=== PATIENT | male | born 1960 | race Caucasian/White ===

== ENCOUNTER 2017-01-03 05:50 | Day surgery (SDC) | payer OTHER ==
[~2017-01-03] VITALS: Ht 175.3 cm; Wt 78.3 kg
--- NOTE | ~2017-01-03 | OR ---
PATIENT'S NAME: JENNIFFERLESTER Tillman [facility] AGE: 56 Y [address] ROOM: [place] [address] LOCATION: [facility] ADMIT DATE: 01/03/2017 OR/Procedure Report DISCHARGE DATE: FAMILY PHYSICIAN: Gianluca Pino PA-C ATTENDING PHYSICIAN: Wil Reed SURGEON: Wil Reed MD DROP WIRE STRINGER: DATE OF PROCEDURE: 01/03/2017 PREOPERATIVE DIAGNOSES: 1. Cervical degenerative disk disease. 2. Cervical stenosis. 3. Cervical myelomalacia. 4. Cervical radiculopathy. 5. Neck pain. POSTOPERATIVE DIAGNOSES: 1. Cervical degenerative disk disease. 2. Cervical stenosis. 3. Cervical myelomalacia. 4. Cervical radiculopathy. 5. Neck pain. PROCEDURES PERFORMED: 1. Anterior cervical diskectomy with decompression, C3-4. 2. Anterior cervical diskectomy with decompression, C4-5. 3. Anterior cervical diskectomy with decompression, C5-6. 4. Anterior cervical fusion, C3-4. 5. Anterior cervical fusion, C4-5. 6. Anterior cervical fusion, C5-6. 7. Application of allograft structural bone, C3-4. 8. Application of allograft structural bone, C4-5. 9. Application of allograft structural bone, C5-6. 10. Application of anterior plate screw instrumentation for vertebral segments, C3 to C6. SINK MAKER: MILTON Knight ANESTHESIA: General. ESTIMATED BLOOD LOSS: 25 mL. COMPLICATIONS: None. SPECIMENS: None. PATIENT'S NAME: UNIONLESTER [facility] AGE: 56 Y [address] ROOM: [place] [address] LOCATION: [facility] ADMIT DATE: 01/03/2017 OR/Procedure Report DISCHARGE DATE: FAMILY PHYSICIAN: Gianluca Pino PA-C ATTENDING PHYSICIAN: Wil Reed FINDINGS: Severe degenerative collapse and stenosis in the spine. INSTRUMENTATION USED: Lottie Tempus anterior cervical plate screw construct and [employer] allograft bone. OPERATIVE INDICATIONS: The patient is a 56-year-old male with symptomatic cervical stenosis, myelomalacia, and radiculopathy. He failed conservative treatment and was offered surgery in the form of anterior cervical diskectomy and fusion. After the details, risks, benefits, and options were explained, he freely consented to surgery. OPERATIVE NARRATIVE: After the patient was correctly identified and operative site initialed, he was taken back to the operating room and placed in the supine position. After general anesthesia was induced, he was placed in the supine position with all bony prominences well padded and protected. The neck was placed into Fernandez-Wells traction and then prepped and draped in the usual sterile fashion. A time-out was taken to verify the patient and the procedure. He received IV antibiotics prior to surgery. 10 mL of 0.25% Marcaine with epinephrine was injected along line with the incision. A 10- blade was used to make a transverse incision on the right side of the neck over the operative levels. Dissection was taken down through subcutaneous tissue with electrocautery. The platysma was opened in line with the incision. The pretracheal layer of the deep cervical fascia was opened in line with the incision. Blunt dissection brought us down onto the anterior margin of the spine. The prevertebral fascia was opened in the midline, and the longus colli were elevated to allow placement of self-retaining retractors. The spinal needle was placed into the disk space and verified at the C5-6 level. The C3-4, C4-5, and C5-6 disks were exposed. They were incised in turn, and anterior osteophytes were resected. The disk space was entered and gently debrided. Distraction pins were placed across all levels to allow exposure of the disk space severely collapsed. Overhanging osteophytes of the craniovertebral bodies were taken down with Kerrison. A high-speed bur was used to take down the posterior osteophytes. The cord was decompressed by resecting the posterior ligament and direct decompression of the cord. After each level was decompressed fully including the foramen and central canal, endplates were rasped and denuded of their cartilage and prepared for fusion. Bone graft of the appropriate size was impacted in position and recessed below the anterior vertebral margin. Weights were removed, and a 3-level plate of appropriate length was held in position, and variable screws placed at C3, C4, C5, and C6. All screws were locked to the plate. Final AP and lateral x-rays demonstrated good placement of the plate screw construct and the bone graft. The wound was irrigated and dried. There was no bleeding. It was repaired in layers with 2-0 Vicryl on the platysma and a running 4-0 subcuticular Monocryl on the skin. Sterile dressing was PATIENT'S NAME: LESTER ABAD [facility] AGE: 56 Y [address] ROOM: [address] [address] LOCATION: [facility] ADMIT DATE: 01/03/2017 OR/Procedure Report DISCHARGE DATE: FAMILY PHYSICIAN: Gianluca Pino PA-C ATTENDING PHYSICIAN: Wil Reed applied, and the patient was awakened from anesthesia and taken to the recovery room in stable condition. A surgical garment assembly supervisor was necessary in this procedure for evacuation of blood during decompression and assistance with placement of bone graft for fusion and plate screw construct for fixation. MD DEANN QUEEN/guy /[id number] d: 01/03/17 1231 t: 01/14/17 1227, OPERATIVE SUMMARY
--- NOTE | ~2017-01-03 | HP ---
PATIENT'S NAME: JENNIFFERLESTER Tillman [facility] AGE: 56 Y [address] ROOM: [place] [address] LOCATION: [facility] ADMIT DATE: 01/03/2017 History & Physical DISCHARGE DATE: FAMILY PHYSICIAN: Gianluca Pino PA-C ATTENDING PHYSICIAN: Wil Reed DATE OF SERVICE: 01/03/2017 CHIEF COMPLAINT: Neck pain. HISTORY OF PRESENT ILLNESS: The patient is a 56-year-old, , white male who was admitted to the hospital today for an ACDF today, 01/03/2017, per Dr. Wil Reed for neck pain. I am asked to follow him for medical illness and pain management postop. When I see him, he says his pain is 5/10 at 4 in the afternoon and has no nausea, vomiting, chest pain, or shortness of breath at this time. PAST MEDICAL HISTORY: ALLERGIES: NO KNOWN DRUG ALLERGIES. FAMILY HISTORY: Negative for problem with bleeding disorder or general anesthesia. SOCIAL HISTORY: Does not smoke. Occasional drink of alcohol. IMMUNIZATIONS: Status unknown. CURRENT MEDICATIONS: Tylenol. PREVIOUS SURGERY: Carpal tunnel surgery on the right, appendectomy, and carpal tunnel surgery on the left. REVIEW OF SYSTEMS: HEENT: No recent change in vision. ENDOCRINE: He is not diabetic. No history of thyroid disorder. LUNGS: No history of asthma. HEART: No history of chest pain, palpitations, or hypertension. GI: No recent nausea, vomiting, or diarrhea. PATIENT'S NAME: JENNIFFERLESTER [facility] AGE: 56 Y [address] ROOM: [place] [address] LOCATION: [facility] ADMIT DATE: 01/03/2017 History & Physical DISCHARGE DATE: FAMILY PHYSICIAN: Gianluca Pino PA-C ATTENDING PHYSICIAN: Wil Reed : No dysuria, frequency. EXTREMITIES AND SPINE: As mentioned. SKIN: No recent rashes. MENTAL STATUS: No recent depression or anxiety. PHYSICAL EXAMINATION: GENERAL: Pleasant, dark-haired male who appears his stated age, sitting in bed, with a dressing over the right side of his anterior neck. He is oriented to person, place, and time. Cognition is consistent with postop status, on pain medications. HEENT: Pupils react to light. TMs not visualized. Posterior pharynx is clear. NECK: Unremarkable. Dressing, right side of the neck. Betadine preps over the neck. Thyroid not enlarged. LUNGS: Clear without wheeze or rub. HEART: No murmur, gallop, or rub. ABDOMEN: Soft without point tenderness. PELVIC AND RECTAL: Exam not done. EXTREMITIES: Pulses full throughout. NEUROLOGIC: Cranial nerves intact. No lateralizing signs. Mental status normal as mentioned postop. ASSESSMENT: 1. Neck pain, acute on chronic. 2. Status post anterior cervical discectomy and fusion today per Dr. Reed. See operative note. PLAN: Follow daily. Further treatment as indicated. ERIC PEREZ MD OIL EXPELLER/guy /[id number] D: [id number] T: [id number] HISTORY & PHYSICAL
[2017-01-03 06:44] LABS: INR - (THERAPEUTIC) 0.96 (0.92-1.07); PROTIME 10.1 SECONDS (9.8-11.4)
[2017-01-04] MEDS ORDERED: SOMA350 MG PO (12:06)
[2017-01-04] MEDS ORDERED: NORCO 10-325 T1 EACH PO (12:08)
== END 2017-01-04 12:52 | disposition disaster alternative care site (69) ==
LOC: G3N 05:50 → GSDC 05:50 → G3N 14:22 → GSDC 01-04 12:52
PROVIDERS: Orthopaedic Surgery Orthopaedic Surgery of the Spine
PROC: 0RB30ZZ Excision of Cervical Vertebral Disc, Open Approach (ICD-10-PCS; principal; 2017-01-03)
PROC: 0RG20K0 Fusion of 2 or more Cervical Vertebral Joints with Nonautologous Tissue Substitute, Anterior Approach, Anterior Column, Open Approach (ICD-10-PCS; 2017-01-03)
DX: M48.02 Spinal stenosis, cervical region (principal); M50.11 Cervical disc disorder with radiculopathy, high cervical region; G95.89 Other specified diseases of spinal cord; Z79.899 Other long term (current) drug therapy; Z90.49 Acquired absence of other specified parts of digestive tract; Z98.890 Other specified postprocedural states
CPT/HCPCS: C1713; J0131; J0690; J1100; J2250; J2405; J3010; J3480; J7030